=== PATIENT | male | born 1995 | race Caucasian/White ===

== ENCOUNTER 2016-10-22 10:49 | Emergency (ER) | payer MEDICAID, OTHER ==
[~2016-10-22] VITALS: Ht 167.6 cm; Wt 100.0 kg
[2016-10-22] MEDS ORDERED: SODIUM CHLORIDE 0.9% 10ML VIAL ONE (13:50)
[2016-10-22] MEDS ORDERED: IOHEXOL-300 100 ML BOTTLE ONE (13:50)
[2016-10-22] MEDS ORDERED: KETOROLAC 60MG/2ML VIAL IM STA (18:41)
[2016-10-22] MEDS ORDERED: KETOROLAC 30MG/ML VIAL IV STA (18:51)
[2016-10-22] MEDS ORDERED: SODIUM CHLORIDE 0.9% 1,000 ML IV ONE (18:51)
[2016-10-22] MEDS ORDERED: ONDANSETRON HCL 4MG/2ML VIAL IV STA (18:51)
[2016-10-22 20:00] LABS: CLARITY URINE CLEAR (CLEAR); COLOR URINE DARK YELLOW (YELLOW); GLUCOSE URINE NEGATIVE (NEGATIVE); KETONES URINE TRACE (NEGATIVE); LEUKOCYTE ESTERASE URINE TRACE (NEGATIVE); NITRITE URINE NEGATIVE (NEGATIVE); OCCULT BLOOD URINE NEGATIVE (NEGATIVE); PH URINE 6.5 (4.5-8.0); PROTEIN URINE 1+ (NEGATIVE); SPECIFIC GRAVITY URINE 1.032 (1.005-1.030)
[2016-10-22 20:11] LABS: *AMPHETAMINES SCREEN URINE NEGATIVE (NEGATIVE); *BARBITURATES SCREEN URINE NEGATIVE (NEGATIVE); *BENZODIAZEPINES SCREEN URINE NEGATIVE (NEGATIVE); *COCAINE SCREEN URINE NEGATIVE (NEGATIVE); CANNABINOID URINE SCREEN NEGATIVE (NEGATIVE); METHADONE URINE SCREEN NEGATIVE (NEGATIVE); OPIATES URINE SCREEN NEGATIVE (NEGATIVE); PHENCYCLIDINE URINE SCREEN NEGATIVE (NEGATIVE)
[2016-10-22] MEDS ORDERED: ACETAMINOPHEN 500MG TABLET PO ONE (20:15)
[2016-10-22 20:39] LABS: BASOPHILS % 0.4 % (0.0-2.0); EOSINOPHILS % 0.3 % (0.0-5.0); HEMATOCRIT. 37.6 % (42.0-52.0); HEMOGLOBIN. 12.6 g/dL (14.0-18.0); LYMPHOCYTES % 14.7 % (20.0-50.0); MEAN CORPUSCULAR VOLUME 86.3 fL (80.0-94.0); MEAN PLATELET VOLUME 8.4 fl (7.4-10.4); MONOCYTES % 8.9 % (2.0-8.0); NEUTROPHILS % 75.7 % (40.0-76.0); PLATELET 261 x1000/uL (130-400); RED BLOOD CELL COUNT 4.35 mill/uL (4.7-6.1); RED CELL DISTRIBUTION WIDTH 12.8 % (11.6-14.6)
[2016-10-22 20:53] LABS: CARBON DIOXIDE 29 mEq/L (21-32); CHLORIDE 102 mEq/L (98-107); ETHANOL BLOOD < 10 mg/dL
[2016-10-22 20:54] LABS: TROPONIN I < 0.02 ng/mL (0.00-0.04)
[2016-10-22] MEDS ORDERED: CEFTRIAXONE 1 G PREMIX 50 ML IV ONE (23:15)
[2016-10-22] MEDS ORDERED: IBUPROFEN 600MG TABLET PO SCH (23:16)
[2016-10-23] VITALS: BP 111/46
== END 2016-10-23 00:37 | disposition home or self-care (01) ==
LOC: ER 13:53
DX: J18.9 Pneumonia, unspecified organism (principal); M54.5 Low back pain; R09.81 Nasal congestion; J45.909 Unspecified asthma, uncomplicated
CPT/HCPCS: 36415; 71010; 72100; 73502; 74177; 80053; 80305; 81001; 83690; 84484; 85025; 93005; 96361; 96365; 96375; 99285; A4216; G0482; J0696; J1885; J2405; J7030; Q9967; Z7610

== ENCOUNTER 2018-05-03 04:51 | Emergency (ER) | payer MEDICAID, OTHER ==
[~2018-05-03] VITALS: Ht 175.3 cm; Wt 100.0 kg
[2018-05-03] MEDS ORDERED: KETOROLAC 60MG/2ML VIAL IM STA (06:41)
[2018-05-03 09:10] VITALS: BP 113/57
== END 2018-05-03 09:15 | disposition home or self-care (01) ==
LOC: ER 04:51
DX: M54.5 Low back pain (principal); J45.909 Unspecified asthma, uncomplicated
CPT/HCPCS: 72100; 96372; 99283; J1885

== ENCOUNTER 2018-05-23 23:08 | Emergency (ER) | payer MEDICAID ==
[~2018-05-23] VITALS: Ht 180.3 cm; Wt 100.0 kg
[2018-05-24] MEDS ORDERED: KETOROLAC 60MG/2ML VIAL IM ONE (02:15)
[2018-05-24 04:00] VITALS: BP 111/75
== END 2018-05-24 04:05 | disposition home or self-care (01) ==
LOC: ER 23:08
DX: S50.11XA Contusion of right forearm, initial encounter (principal); W18.2XXA Fall in (into) shower or empty bathtub, initial encounter; Y93.89 Activity, other specified; Y92.89 Other specified places as the place of occurrence of the external cause; Y99.8 Other external cause status
CPT/HCPCS: 73060; 73090; 96372; 99283; J1885; A4565

== ENCOUNTER 2019-05-10 12:53 | Emergency (ER) | payer MEDICAID, OTHER ==
[~2019-05-10] VITALS: Ht 172.7 cm; Wt 75.0 kg
[2019-05-10 14:51] VITALS: BP 137/52
== END 2019-05-10 14:53 | disposition home or self-care (01) ==
LOC: ER 12:53
DX: M79.18 Myalgia, other site (principal); Z71.89 Other specified counseling
CPT/HCPCS: 82962; 99281